=== PATIENT | male | born 1960 | race Caucasian/White ===

== ENCOUNTER 2019-01-04 00:10 | Inpatient (IN) | payer OTHER ==
[2019-01-04 00:33] LABS: ADD MAN DIFF? NO
[2019-01-04 00:34] LABS: WHITE BLOOD COUNT 11.1 10^3/ul (4.8-10.8)
[2019-01-04 00:34] LABS: BASOPHILS % 0.4 % (0.0-2.0); EOSINOPHILS % 0.2 % (0.0-7.0); HEMATOCRIT 41.3 % (42.0-52.0); HEMOGLOBIN 14.1 g/dl (14.0-18.0); LYMPHOCYTES # 1.8 10^3/ul (0.8-2.9); LYMPHOCYTES % 16.5 % (15.0-51.0); MEAN CORPUSCULAR HEMOGLOBIN 28.7 pg (29.0-33.0); MEAN CORPUSCULAR HGB CONC 34.1 g/dl (32.0-37.0); MEAN CORPUSCULAR VOLUME 83.9 fl (82.0-101.0); MEAN PLATELET VOLUME 9.8 fl (7.4-10.4); MONOCYTE # 0.6 10^3/ul (0.3-0.9); MONOCYTES % 5.3 % (0.0-11.0); NEUTROPHIL # 8.6 10^3/ul (1.6-7.5); NEUTROPHILS % 77.4 % (39.0-77.0); PLATELET COUNT 302 10^3/UL (140-415); RED BLOOD COUNT 4.92 10^6/ul (4.70-6.10); RED CELL DISTRIBUTION WIDTH 12.7 % (11.5-14.5)
[2019-01-04 00:51] LABS: ALANINE AMINOTRANSFERASE 17 IU/L (13-69); ALBUMIN 4.5 g/dl (3.3-4.9); ALBUMIN/GLOBULIN RATIO 1.15; ALKALINE PHOSPHATASE 110 IU/L (42-121); ANION GAP 13 (5-13); ASPARTATE AMINO TRANSFERASE 23 IU/L (15-46); BILIRUBIN,INDIRECT 0.5 mg/dl (0-1.1); BILIRUBIN,TOTAL 0.5 mg/dl (0.2-1.3); BLOOD UREA NITROGEN 21 mg/dl (7-20); CALCIUM 9.4 mg/dl (8.4-10.2); CARBON DIOXIDE 30 mmol/L (21-31); CHLORIDE 99 mmol/L (97-110); CREATININE 1.75 mg/dl (0.61-1.24); Estimated GFR 40 mL/min (>60); GLUCOSE 322 mg/dl (70-220); LIPASE 64 U/L (23-300); POTASSIUM 3.6 mmol/L (3.5-5.1); SODIUM 142 mmol/L (135-144); TOTAL PROTEIN 8.4 g/dl (6.1-8.1)
[2019-01-04] MEDS: SOD CHLORIDE 0.9% 1,000 ML IV ×2 (00:53→10:46)
[2019-01-04 01:02] LABS: TROPONIN-I 0.056 ng/ml (0.000-0.120)
[2019-01-04] MEDS: ASPIRIN 81 MG TAB PO (02:05)
[2019-01-04] MEDS: ENALAPRILAT 1.25 MG INJ IV (02:05)
[2019-01-04 02:09] LABS: ADD UMIC YES; UR ASCORBIC ACID NEGATIVE (NEGATIVE); UR BILIRUBIN (Dip) NEGATIVE (NEGATIVE); UR BLOOD (Dip) NEGATIVE (NEGATIVE); UR CLARITY CLEAR (CLEAR); UR COLOR YELLOW (YELLOW); UR GLUCOSE (Dip) 3+ mg/dL (NEGATIVE); UR KETONES (Dip) NEGATIVE (NEGATIVE); UR LEUKOCYTE ESTERASE (Dip) NEGATIVE Leu/ul (NEGATIVE); UR NITRITE (Dip) NEGATIVE (NEGATIVE); UR RBC 1 /HPF (0-5); UR TOTAL PROTEIN (Dip) 3+ mg/dl (NEGATIVE); UR UROBILINOGEN (Dip) NEGATIVE (NEGATIVE); UR WBC 1 /HPF (0-5)
[2019-01-04] MEDS ORDERED: ACETAMINOPHEN 650 MG SUPP PR (02:30)
[2019-01-04] MEDS ORDERED: hydrALAzine 20 MG INJ IV (02:30)
[2019-01-04] MEDS ORDERED: NACL 0.9% 3 ML SYG IV (02:30)
[2019-01-04 11:24] LABS: HEMOGLOBIN A1C 8.1 % (0-5.9)
[2019-01-04 11:24] LABS: ANION GAP 8 (5-13); BLOOD UREA NITROGEN 18 mg/dl (7-20); CALCIUM 8.7 mg/dl (8.4-10.2); CARBON DIOXIDE 25 mmol/L (21-31); CHLORIDE 108 mmol/L (97-110); CREATININE 1.42 mg/dl (0.61-1.24); Estimated GFR 51 mL/min (>60); GLUCOSE 83 mg/dl (70-220); POTASSIUM 3.5 mmol/L (3.5-5.1); SODIUM 141 mmol/L (135-144)
[2019-01-04 11:27] LABS: CHOL/HDL RATIO 9.3 RATIO; HDL CHOLESTEROL 25 mg/dl (30-78); LDL CHOLESTEROL,CALCULATED 148 mg/dl; TRIGLYCERIDES 301 mg/dl (0-149)
[2019-01-04 11:27] LABS: CHOLESTEROL 233 mg/dl (100-200)
[2019-01-04] MEDS: AMLODIPINE 5 MG TAB PO (13:14)
[2019-01-04 15:59] LABS: ERYTHROCYTE SEDIMENTATION RATE 43 mm/Hr (0-20)
[2019-01-04 18:31] LABS: ADD UMIC YES; UR ASCORBIC ACID NEGATIVE (NEGATIVE); UR BILIRUBIN (Dip) NEGATIVE (NEGATIVE); UR BLOOD (Dip) NEGATIVE (NEGATIVE); UR CLARITY CLEAR (CLEAR); UR COLOR YELLOW (YELLOW); UR GLUCOSE (Dip) 3+ mg/dL (NEGATIVE); UR KETONES (Dip) NEGATIVE (NEGATIVE); UR LEUKOCYTE ESTERASE (Dip) NEGATIVE Leu/ul (NEGATIVE); UR NITRITE (Dip) NEGATIVE (NEGATIVE); UR RBC 1 /HPF (0-5); UR SPECIFIC GRAVITY (Dip) 1.014 (1.003-1.030); UR TOTAL PROTEIN (Dip) 3+ mg/dl (NEGATIVE); UR UROBILINOGEN (Dip) NEGATIVE (NEGATIVE); UR WBC 1 /HPF (0-5)
[2019-01-04 19:03] LABS: AMPHETAMINE/METHAMPHETAMINE Negative (NEGATIVE); BARBITURATES Negative (NEGATIVE); BENZODIAZEPINES Negative (NEGATIVE); CANNABINOIDS Negative (NEGATIVE); COCAINE Negative (NEGATIVE); OPIATES Negative (NEGATIVE)
[2019-01-04 19:07] LABS: CREATININE,URINE RANDOM 97.56 mg/dl (20-370)
[2019-01-04 19:07] LABS: SODIUM,URINE RANDOM 80 mmol/L (30-90)
[2019-01-04 20:42] LABS: RAPID PLASMA REAGIN NONREACTIVE (NR)
[2019-01-04] MEDS ORDERED: GLUCOSE GEL 15 GRAM TUBE BUCCAL (21:00)
[2019-01-04] MEDS ORDERED: GLUCOSE GEL 15 GRAM TUBE PO ×2 (21:00)
[2019-01-04] MEDS ORDERED: DEXTROSE 50% 50 ML SYRINGE IV ×2 (21:00)
[2019-01-04] MEDS ORDERED: GLUCAGON 1 MG INJ IM (21:00)
[2019-01-04] MEDS: ATORVASTATIN 80 MG TAB PO (21:50)
[2019-01-04] MEDS: INSULIN ASPART [NOVOLOG] 3 ML PEN SC (22:10)
[2019-01-05] MEDS: ACCU-CHEK XX (01:50)
[2019-01-05 06:19] LABS: ADD MAN DIFF? NO
[2019-01-05 06:25] LABS: WHITE BLOOD COUNT 11.5 10^3/ul (4.8-10.8)
[2019-01-05 06:25] LABS: BASOPHIL # 0.1 10^3/ul (0.0-0.1); BASOPHILS % 0.6 % (0.0-2.0); EOSINOPHILS # 0.3 10^3/ul (0.0-0.5); EOSINOPHILS % 2.3 % (0.0-7.0); HEMATOCRIT 37.8 % (42.0-52.0); LYMPHOCYTES # 2.6 10^3/ul (0.8-2.9); LYMPHOCYTES % 22.4 % (15.0-51.0); MEAN CORPUSCULAR HEMOGLOBIN 28.6 pg (29.0-33.0); MEAN CORPUSCULAR HGB CONC 34.4 g/dl (32.0-37.0); MEAN CORPUSCULAR VOLUME 83.3 fl (82.0-101.0); MONOCYTE # 0.7 10^3/ul (0.3-0.9); MONOCYTES % 5.7 % (0.0-11.0); NEUTROPHIL # 7.9 10^3/ul (1.6-7.5); NEUTROPHILS % 68.7 % (39.0-77.0); PLATELET COUNT 291 10^3/UL (140-415); RED BLOOD COUNT 4.54 10^6/ul (4.70-6.10); RED CELL DISTRIBUTION WIDTH 12.7 % (11.5-14.5)
[2019-01-05 06:52] LABS: ALANINE AMINOTRANSFERASE 17 IU/L (13-69); ALBUMIN 3.6 g/dl (3.3-4.9); ALBUMIN/GLOBULIN RATIO 1.02; ALKALINE PHOSPHATASE 90 IU/L (42-121); ANION GAP 9 (5-13); ASPARTATE AMINO TRANSFERASE 27 IU/L (15-46); BILIRUBIN,INDIRECT 0.5 mg/dl (0-1.1); BILIRUBIN,TOTAL 0.5 mg/dl (0.2-1.3); BLOOD UREA NITROGEN 18 mg/dl (7-20); CALCIUM 8.8 mg/dl (8.4-10.2); CARBON DIOXIDE 25 mmol/L (21-31); CHLORIDE 106 mmol/L (97-110); CREATININE 1.48 mg/dl (0.61-1.24); Estimated GFR 48 mL/min (>60); GLUCOSE 178 mg/dl (70-220); MAGNESIUM 1.9 mg/dl (1.7-2.5); POTASSIUM 3.5 mmol/L (3.5-5.1); SODIUM 140 mmol/L (135-144); TOTAL PROTEIN 7.1 g/dl (6.1-8.1)
[2019-01-05] MEDS: AMLODIPINE 5 MG TAB PO (08:28)
[2019-01-05] MEDS: INSULIN ASPART [NOVOLOG] 3 ML PEN SC ×4 (08:34→21:00)
[2019-01-05] MEDS: ATORVASTATIN 80 MG TAB PO (20:48)
[2019-01-05] MEDS: HEPARIN 5,000 UNIT/1 ML VIAL SC (21:01)
[2019-01-06] MEDS: ACCU-CHEK XX (02:19)
[2019-01-06 05:54] LABS: ADD MAN DIFF? NO
[2019-01-06 06:04] LABS: WHITE BLOOD COUNT 9.3 10^3/ul (4.8-10.8)
[2019-01-06 06:04] LABS: BASOPHILS % 0.4 % (0.0-2.0); EOSINOPHILS # 0.3 10^3/ul (0.0-0.5); EOSINOPHILS % 2.9 % (0.0-7.0); HEMATOCRIT 36.1 % (42.0-52.0); HEMOGLOBIN 12.4 g/dl (14.0-18.0); LYMPHOCYTES # 2.1 10^3/ul (0.8-2.9); LYMPHOCYTES % 22.5 % (15.0-51.0); MEAN CORPUSCULAR HEMOGLOBIN 28.8 pg (29.0-33.0); MEAN CORPUSCULAR HGB CONC 34.3 g/dl (32.0-37.0); MEAN CORPUSCULAR VOLUME 83.8 fl (82.0-101.0); MEAN PLATELET VOLUME 10.3 fl (7.4-10.4); MONOCYTE # 0.6 10^3/ul (0.3-0.9); MONOCYTES % 6.8 % (0.0-11.0); NEUTROPHIL # 6.2 10^3/ul (1.6-7.5); NEUTROPHILS % 67.1 % (39.0-77.0); PLATELET COUNT 263 10^3/UL (140-415); RED BLOOD COUNT 4.31 10^6/ul (4.70-6.10); RED CELL DISTRIBUTION WIDTH 12.6 % (11.5-14.5)
[2019-01-06 06:25] LABS: ANION GAP 8 (5-13); BLOOD UREA NITROGEN 20 mg/dl (7-20); CALCIUM 8.7 mg/dl (8.4-10.2); CARBON DIOXIDE 25 mmol/L (21-31); CHLORIDE 106 mmol/L (97-110); CREATININE 1.59 mg/dl (0.61-1.24); Estimated GFR 45 mL/min (>60); GLUCOSE 274 mg/dl (70-220); MAGNESIUM 1.9 mg/dl (1.7-2.5); PHOSPHORUS 3.6 mg/dl (2.5-4.9); POTASSIUM 3.8 mmol/L (3.5-5.1); SODIUM 139 mmol/L (135-144)
[2019-01-06] MEDS: INSULIN ASPART [NOVOLOG] 3 ML PEN SC ×4 (07:53→21:53)
[2019-01-06] MEDS: INSULIN GLARGINE [LANTus] (100 UNITS/ML) SYG SC (07:53)
[2019-01-06] MEDS: AMLODIPINE 5 MG TAB PO (09:01)
[2019-01-06] MEDS: HEPARIN 5,000 UNIT/1 ML VIAL SC ×2 (09:04→21:53)
[2019-01-06 16:32] LABS: CREATININE, RANDOM URINE 100 mg/dL (20-320); MICROALBUMIN 302.3 mg/dL; MICROALBUMIN/CREATININE RATIO 3023 (<30)
[2019-01-06] MEDS: ATORVASTATIN 80 MG TAB PO (21:40)
[2019-01-07] MEDS: ACCU-CHEK XX (02:06)
[2019-01-07 05:46] LABS: ADD MAN DIFF? NO
[2019-01-07 05:51] LABS: BASOPHIL # 0.1 10^3/ul (0.0-0.1); BASOPHILS % 0.8 % (0.0-2.0); EOSINOPHILS # 0.3 10^3/ul (0.0-0.5); EOSINOPHILS % 3.2 % (0.0-7.0); HEMATOCRIT 38.2 % (42.0-52.0); LYMPHOCYTES # 2.4 10^3/ul (0.8-2.9); LYMPHOCYTES % 26.3 % (15.0-51.0); MEAN CORPUSCULAR HEMOGLOBIN 28.3 pg (29.0-33.0); MEAN CORPUSCULAR VOLUME 83.2 fl (82.0-101.0); MEAN PLATELET VOLUME 10.2 fl (7.4-10.4); MONOCYTE # 0.6 10^3/ul (0.3-0.9); MONOCYTES % 6.8 % (0.0-11.0); NEUTROPHIL # 5.7 10^3/ul (1.6-7.5); NEUTROPHILS % 62.6 % (39.0-77.0); PLATELET COUNT 273 10^3/UL (140-415); RED BLOOD COUNT 4.59 10^6/ul (4.70-6.10); RED CELL DISTRIBUTION WIDTH 12.8 % (11.5-14.5)
[2019-01-07 05:51] LABS: WHITE BLOOD COUNT 9.1 10^3/ul (4.8-10.8)
[2019-01-07 06:35] LABS: ANION GAP 6 (5-13); BLOOD UREA NITROGEN 20 mg/dl (7-20); CALCIUM 8.5 mg/dl (8.4-10.2); CARBON DIOXIDE 27 mmol/L (21-31); CHLORIDE 107 mmol/L (97-110); CREATININE 1.48 mg/dl (0.61-1.24); Estimated GFR 48 mL/min (>60); GLUCOSE 216 mg/dl (70-220); POTASSIUM 3.7 mmol/L (3.5-5.1); SODIUM 140 mmol/L (135-144)
[2019-01-07] MEDS: AMLODIPINE 5 MG TAB PO (07:54)
[2019-01-07] MEDS: HEPARIN 5,000 UNIT/1 ML VIAL SC ×2 (08:13→20:36)
[2019-01-07] MEDS: INSULIN ASPART [NOVOLOG] 3 ML PEN SC ×4 (08:13→20:36)
[2019-01-07] MEDS: INSULIN GLARGINE [LANTus] (100 UNITS/ML) SYG SC (08:13)
[2019-01-07] MEDS: ATORVASTATIN 80 MG TAB PO (20:24)
[2019-01-08] MEDS: ACCU-CHEK XX (01:59)
[2019-01-08 05:55] LABS: ADD MAN DIFF? NO
[2019-01-08 05:59] LABS: WHITE BLOOD COUNT 9.7 10^3/ul (4.8-10.8)
[2019-01-08 05:59] LABS: BASOPHIL # 0.1 10^3/ul (0.0-0.1); BASOPHILS % 0.6 % (0.0-2.0); EOSINOPHILS # 0.3 10^3/ul (0.0-0.5); EOSINOPHILS % 3.4 % (0.0-7.0); HEMATOCRIT 38.2 % (42.0-52.0); HEMOGLOBIN 12.9 g/dl (14.0-18.0); LYMPHOCYTES # 2.7 10^3/ul (0.8-2.9); LYMPHOCYTES % 27.8 % (15.0-51.0); MEAN CORPUSCULAR HEMOGLOBIN 28.4 pg (29.0-33.0); MEAN CORPUSCULAR HGB CONC 33.8 g/dl (32.0-37.0); MEAN CORPUSCULAR VOLUME 84.1 fl (82.0-101.0); MEAN PLATELET VOLUME 10.2 fl (7.4-10.4); MONOCYTE # 0.6 10^3/ul (0.3-0.9); MONOCYTES % 5.9 % (0.0-11.0); NEUTROPHILS % 62.1 % (39.0-77.0); PLATELET COUNT 284 10^3/UL (140-415); RED BLOOD COUNT 4.54 10^6/ul (4.70-6.10); RED CELL DISTRIBUTION WIDTH 12.7 % (11.5-14.5)
[2019-01-08 06:42] LABS: ANION GAP 7 (5-13); BLOOD UREA NITROGEN 20 mg/dl (7-20); CALCIUM 8.6 mg/dl (8.4-10.2); CARBON DIOXIDE 27 mmol/L (21-31); CHLORIDE 106 mmol/L (97-110); CREATININE 1.44 mg/dl (0.61-1.24); Estimated GFR 50 mL/min (>60); GLUCOSE 177 mg/dl (70-220); POTASSIUM 3.7 mmol/L (3.5-5.1); SODIUM 140 mmol/L (135-144)
[2019-01-08] MEDS: INSULIN ASPART [NOVOLOG] 3 ML PEN SC ×4 (08:10→21:00)
[2019-01-08] MEDS: INSULIN GLARGINE [LANTus] (100 UNITS/ML) SYG SC (08:13)
[2019-01-08] MEDS: HEPARIN 5,000 UNIT/1 ML VIAL SC ×2 (09:36→21:25)
[2019-01-08] MEDS: AMLODIPINE 5 MG TAB PO (09:45)
[2019-01-08] MEDS: ATORVASTATIN 80 MG TAB PO (21:18)
[2019-01-09] MEDS: ACCU-CHEK XX (02:00)
[2019-01-09] MEDS: INSULIN ASPART [NOVOLOG] 3 ML PEN SC ×4 (07:49→21:06)
[2019-01-09] MEDS: INSULIN GLARGINE [LANTus] (100 UNITS/ML) SYG SC (07:53)
[2019-01-09] MEDS: AMLODIPINE 5 MG TAB PO (08:36)
[2019-01-09] MEDS: HEPARIN 5,000 UNIT/1 ML VIAL SC ×2 (08:48→21:07)
[2019-01-09] MEDS: ATORVASTATIN 80 MG TAB PO (21:07)
[2019-01-10] MEDS: ACCU-CHEK XX (02:16)
[2019-01-10] MEDS: AMLODIPINE 5 MG TAB PO (09:21)
[2019-01-10] MEDS: INSULIN GLARGINE [LANTus] (100 UNITS/ML) SYG SC (09:42)
[2019-01-10] MEDS: INSULIN ASPART [NOVOLOG] 3 ML PEN SC ×4 (09:42→20:34)
[2019-01-10] MEDS: HEPARIN 5,000 UNIT/1 ML VIAL SC ×2 (09:42→20:23)
[2019-01-10] MEDS: ATORVASTATIN 80 MG TAB PO (20:21)
[2019-01-11] MEDS: ACCU-CHEK XX (02:18)
[2019-01-11] MEDS: ACETAMINOPHEN 325 MG TAB PO (02:22)
[2019-01-11 06:29] LABS: ANION GAP 9 (5-13); BLOOD UREA NITROGEN 24 mg/dl (7-20); CALCIUM 8.8 mg/dl (8.4-10.2); CARBON DIOXIDE 26 mmol/L (21-31); CHLORIDE 105 mmol/L (97-110); CREATININE 1.62 mg/dl (0.61-1.24); Estimated GFR 44 mL/min (>60); GLUCOSE 153 mg/dl (70-220); MAGNESIUM 2.1 mg/dl (1.7-2.5); PHOSPHORUS 3.9 mg/dl (2.5-4.9); SODIUM 140 mmol/L (135-144)
[2019-01-11] MEDS: INSULIN ASPART [NOVOLOG] 3 ML PEN SC ×4 (07:52→21:00)
[2019-01-11] MEDS: INSULIN GLARGINE [LANTus] (100 UNITS/ML) SYG SC (08:00)
[2019-01-11] MEDS: AMLODIPINE 5 MG TAB PO (08:27)
[2019-01-11] MEDS: HEPARIN 5,000 UNIT/1 ML VIAL SC ×2 (09:26→21:44)
[2019-01-11] MEDS: ASPIRIN (EC) 81 MG TAB PO (15:00)
[2019-01-11] MEDS: BISACODYL (EC) 5 MG TAB PO (17:56)
[2019-01-11] MEDS: ATORVASTATIN 80 MG TAB PO (21:41)
[2019-01-11] MEDS: POLYETHYLENE GLYCOL 17 GM PACKET PO (21:42)
[2019-01-12] MEDS: ACCU-CHEK XX (02:00)
[2019-01-12 05:29] LABS: ADD MAN DIFF? NO
[2019-01-12 05:34] LABS: BASOPHIL # 0.1 10^3/ul (0.0-0.1); BASOPHILS % 0.5 % (0.0-2.0); EOSINOPHILS # 0.2 10^3/ul (0.0-0.5); EOSINOPHILS % 2.3 % (0.0-7.0); HEMATOCRIT 38.3 % (42.0-52.0); HEMOGLOBIN 12.9 g/dl (14.0-18.0); LYMPHOCYTES # 2.7 10^3/ul (0.8-2.9); LYMPHOCYTES % 28.4 % (15.0-51.0); MEAN CORPUSCULAR HEMOGLOBIN 28.2 pg (29.0-33.0); MEAN CORPUSCULAR HGB CONC 33.7 g/dl (32.0-37.0); MEAN CORPUSCULAR VOLUME 83.6 fl (82.0-101.0); MEAN PLATELET VOLUME 10.3 fl (7.4-10.4); MONOCYTE # 0.7 10^3/ul (0.3-0.9); MONOCYTES % 6.9 % (0.0-11.0); NEUTROPHIL # 5.9 10^3/ul (1.6-7.5); NEUTROPHILS % 61.6 % (39.0-77.0); PLATELET COUNT 323 10^3/UL (140-415); RED BLOOD COUNT 4.58 10^6/ul (4.70-6.10)
[2019-01-12 05:34] LABS: WHITE BLOOD COUNT 9.5 10^3/ul (4.8-10.8)
[2019-01-12 06:03] LABS: PHOSPHORUS 3.9 mg/dl (2.5-4.9)
[2019-01-12 06:03] LABS: MAGNESIUM 2.1 mg/dl (1.7-2.5)
[2019-01-12 06:04] LABS: ANION GAP 6 (5-13); BLOOD UREA NITROGEN 25 mg/dl (7-20); CALCIUM 8.8 mg/dl (8.4-10.2); CARBON DIOXIDE 27 mmol/L (21-31); CHLORIDE 106 mmol/L (97-110); CREATININE 1.65 mg/dl (0.61-1.24); Estimated GFR 43 mL/min (>60); GLUCOSE 130 mg/dl (70-220); POTASSIUM 4.3 mmol/L (3.5-5.1); SODIUM 139 mmol/L (135-144)
[2019-01-12] MEDS: INSULIN ASPART [NOVOLOG] 3 ML PEN SC ×4 (09:00→20:48)
[2019-01-12] MEDS ORDERED: ASPIRIN (EC) 81 MG TAB PO (09:00)
[2019-01-12] MEDS: ASPIRIN 81 MG TAB PO (09:08)
[2019-01-12] MEDS: AMLODIPINE 5 MG TAB PO (09:09)
[2019-01-12] MEDS: POLYETHYLENE GLYCOL 17 GM PACKET PO ×2 (09:09→20:43)
[2019-01-12] MEDS: INSULIN GLARGINE [LANTus] (100 UNITS/ML) SYG SC (09:11)
[2019-01-12] MEDS: HEPARIN 5,000 UNIT/1 ML VIAL SC ×2 (09:11→20:49)
[2019-01-12] MEDS: ATORVASTATIN 80 MG TAB PO (20:43)
[2019-01-13] MEDS: ACCU-CHEK XX (02:00)
[2019-01-13 05:00] LABS: ADD MAN DIFF? NO
[2019-01-13 05:03] LABS: WHITE BLOOD COUNT 10.9 10^3/ul (4.8-10.8)
[2019-01-13 05:03] LABS: BASOPHIL # 0.1 10^3/ul (0.0-0.1); BASOPHILS % 0.5 % (0.0-2.0); EOSINOPHILS # 0.2 10^3/ul (0.0-0.5); EOSINOPHILS % 1.8 % (0.0-7.0); HEMATOCRIT 38.3 % (42.0-52.0); LYMPHOCYTES # 2.5 10^3/ul (0.8-2.9); LYMPHOCYTES % 22.9 % (15.0-51.0); MEAN CORPUSCULAR HEMOGLOBIN 28.7 pg (29.0-33.0); MEAN CORPUSCULAR HGB CONC 33.9 g/dl (32.0-37.0); MEAN CORPUSCULAR VOLUME 84.5 fl (82.0-101.0); MEAN PLATELET VOLUME 10.1 fl (7.4-10.4); MONOCYTE # 0.7 10^3/ul (0.3-0.9); MONOCYTES % 6.4 % (0.0-11.0); NEUTROPHIL # 7.4 10^3/ul (1.6-7.5); NEUTROPHILS % 68.1 % (39.0-77.0); PLATELET COUNT 317 10^3/UL (140-415); RED BLOOD COUNT 4.53 10^6/ul (4.70-6.10)
[2019-01-13 05:29] LABS: ANION GAP 6 (5-13); BLOOD UREA NITROGEN 27 mg/dl (7-20); CALCIUM 9.1 mg/dl (8.4-10.2); CARBON DIOXIDE 29 mmol/L (21-31); CHLORIDE 106 mmol/L (97-110); CREATININE 1.65 mg/dl (0.61-1.24); Estimated GFR 43 mL/min (>60); GLUCOSE 132 mg/dl (70-220); POTASSIUM 4.3 mmol/L (3.5-5.1); SODIUM 141 mmol/L (135-144)
[2019-01-13 05:40] LABS: MAGNESIUM 2.1 mg/dl (1.7-2.5)
[2019-01-13 05:40] LABS: PHOSPHORUS 4.1 mg/dl (2.5-4.9)
[2019-01-13] MEDS: INSULIN ASPART [NOVOLOG] 3 ML PEN SC ×4 (07:50→20:20)
[2019-01-13] MEDS: ASPIRIN 81 MG TAB PO (08:38)
[2019-01-13] MEDS: AMLODIPINE 5 MG TAB PO (08:41)
[2019-01-13] MEDS: POLYETHYLENE GLYCOL 17 GM PACKET PO ×2 (08:42→20:14)
[2019-01-13] MEDS: HEPARIN 5,000 UNIT/1 ML VIAL SC ×2 (08:43→20:21)
[2019-01-13] MEDS: INSULIN GLARGINE [LANTus] (100 UNITS/ML) SYG SC (08:43)
[2019-01-13] MEDS: ACETAMINOPHEN 325 MG TAB PO (19:22)
[2019-01-13] MEDS: ATORVASTATIN 80 MG TAB PO (20:13)
[2019-01-14] MEDS: ACCU-CHEK XX (02:00)
[2019-01-14] MEDS: ACETAMINOPHEN 325 MG TAB PO (02:52)
[2019-01-14 05:05] LABS: ADD MAN DIFF? NO
[2019-01-14 05:08] LABS: WHITE BLOOD COUNT 9.4 10^3/ul (4.8-10.8)
[2019-01-14 05:08] LABS: BASOPHIL # 0.1 10^3/ul (0.0-0.1); BASOPHILS % 0.5 % (0.0-2.0); EOSINOPHILS # 0.2 10^3/ul (0.0-0.5); EOSINOPHILS % 2.5 % (0.0-7.0); HEMATOCRIT 38.2 % (42.0-52.0); HEMOGLOBIN 12.9 g/dl (14.0-18.0); LYMPHOCYTES % 32.2 % (15.0-51.0); MEAN CORPUSCULAR HEMOGLOBIN 28.7 pg (29.0-33.0); MEAN CORPUSCULAR HGB CONC 33.8 g/dl (32.0-37.0); MEAN CORPUSCULAR VOLUME 84.9 fl (82.0-101.0); MEAN PLATELET VOLUME 10.3 fl (7.4-10.4); MONOCYTE # 0.7 10^3/ul (0.3-0.9); MONOCYTES % 7.1 % (0.0-11.0); NEUTROPHIL # 5.4 10^3/ul (1.6-7.5); NEUTROPHILS % 57.5 % (39.0-77.0); PLATELET COUNT 302 10^3/UL (140-415); RED CELL DISTRIBUTION WIDTH 13.1 % (11.5-14.5)
[2019-01-14 05:34] LABS: MAGNESIUM 2.2 mg/dl (1.7-2.5)
[2019-01-14 05:34] LABS: PHOSPHORUS 4.6 mg/dl (2.5-4.9)
[2019-01-14 05:38] LABS: ANION GAP 7 (5-13); BLOOD UREA NITROGEN 26 mg/dl (7-20); CALCIUM 8.9 mg/dl (8.4-10.2); CARBON DIOXIDE 28 mmol/L (21-31); CHLORIDE 104 mmol/L (97-110); CREATININE 1.68 mg/dl (0.61-1.24); Estimated GFR 42 mL/min (>60); GLUCOSE 171 mg/dl (70-220); POTASSIUM 4.4 mmol/L (3.5-5.1); SODIUM 139 mmol/L (135-144)
[2019-01-14] MEDS: FUROSEMIDE 20 MG TAB PO (08:48)
[2019-01-14] MEDS: ASPIRIN 81 MG TAB PO (08:48)
[2019-01-14] MEDS: SPIRONOLACTONE 25 MG TAB PO (08:48)
[2019-01-14] MEDS: AMLODIPINE 5 MG TAB PO (08:49)
[2019-01-14] MEDS: HEPARIN 5,000 UNIT/1 ML VIAL SC (08:51)
[2019-01-14] MEDS: INSULIN ASPART [NOVOLOG] 3 ML PEN SC ×3 (08:52→17:45)
[2019-01-14] MEDS: INSULIN GLARGINE [LANTus] (100 UNITS/ML) SYG SC (08:53)
[2019-01-14] MEDS: POLYETHYLENE GLYCOL 17 GM PACKET PO (08:54)
== END 2019-01-14 18:30 | DRG 65 ==
LOC: MS1 01-11 18:04 → E/R 00:10 → 6WM 02:03
DX: I63.9 Cerebral infarction, unspecified (principal); G81.91 Hemiplegia, unspecified affecting right dominant side; N17.9 Acute kidney failure, unspecified; I42.9 Cardiomyopathy, unspecified; I12.0 Hypertensive chronic kidney disease with stage 5 chronic kidney disease or end stage renal disease; E11.22 Type 2 diabetes mellitus with diabetic chronic kidney disease; R13.19 Other dysphagia; I25.10 Atherosclerotic heart disease of native coronary artery without angina pectoris; N18.9 Chronic kidney disease, unspecified; E78.5 Hyperlipidemia, unspecified; N40.0 Benign prostatic hyperplasia without lower urinary tract symptoms; D63.8 Anemia in other chronic diseases classified elsewhere; R29.810 Facial weakness; I65.21 Occlusion and stenosis of right carotid artery; Z79.4 Long term (current) use of insulin; Z79.82 Long term (current) use of aspirin; Z95.0 Presence of cardiac pacemaker; Z87.891 Personal history of nicotine dependence
CPT/HCPCS: 36415; 70450; 71045; 76775; 80048; 80053; 80061; 80307; 81001; 81003; 82043; 82962; 83036; 83690; 83735; 84100; 84155; 84300; 84443; 84484; 85025; 85651; 86592; 92507; 92523; 92526; 92610; 93005; 93306; 93880; 95819; 97110; 97163; 97167; 97530; 97535; 99285-25

== ENCOUNTER 2019-02-18 11:10 | Inpatient (IN) | payer OTHER ==
[2019-02-18] MEDS: SODIUM CHLORIDE 0.9% 1L BAG IV* (12:19)
[2019-02-18] MEDS: CEFEPIME 2GM/50 ML (PMX) 50 ML IVPB (12:24)
[2019-02-18 12:31] LABS: MODE NASAL CANNULA; Sample Type Blood venous; Site VENOUS LINE; Venous COHb 0.3 %; Venous Fraction OxyHgb 25.1 %; Venous Oxygen Sat 25.4 mmHG (55.0-75.0); Venous Total Hemglobin 14.8 g/dl
[2019-02-18 12:36] LABS: HEMOGLOBIN 13.8 g/dl (14.0-18.0); MEAN CORPUSCULAR HEMOGLOBIN 29.1 pg (29.0-33.0); MEAN CORPUSCULAR HGB CONC 33.7 g/dl (32.0-37.0); MEAN CORPUSCULAR VOLUME 86.3 fl (82.0-101.0); MEAN PLATELET VOLUME 10.1 fl (7.4-10.4); PLATELET COUNT 212 10^3/UL (140-415); POSITIVE DIFF @See below; RED BLOOD COUNT 4.75 10^6/ul (4.70-6.10); RED CELL DISTRIBUTION WIDTH 13.9 % (11.5-14.5)
[2019-02-18 12:36] LABS: WHITE BLOOD COUNT 20.8 10^3/ul (4.8-10.8)
[2019-02-18 12:48] LABS: ADD MAN DIFF? YES
[2019-02-18 12:53] LABS: ALANINE AMINOTRANSFERASE 55 IU/L (13-69); ALBUMIN 3.7 g/dl (3.3-4.9); ALBUMIN/GLOBULIN RATIO 0.84; ALKALINE PHOSPHATASE 85 IU/L (42-121); ANION GAP 14 (5-13); ASPARTATE AMINO TRANSFERASE 65 IU/L (15-46); BILIRUBIN,INDIRECT 0.3 mg/dl (0-1.1); BILIRUBIN,TOTAL 0.3 mg/dl (0.2-1.3); BLOOD UREA NITROGEN 69 mg/dl (7-20); CALCIUM 9.4 mg/dl (8.4-10.2); CARBON DIOXIDE 21 mmol/L (21-31); CHLORIDE 100 mmol/L (97-110); CREATININE 3.44 mg/dl (0.61-1.24); Estimated GFR 18 mL/min (>60); MAGNESIUM 2.2 mg/dl (1.7-2.5); PHOSPHORUS 5.5 mg/dl (2.5-4.9); SODIUM 135 mmol/L (135-144); TOTAL PROTEIN 8.1 g/dl (6.1-8.1)
[2019-02-18 12:54] LABS: INR 1.14; PROTIME 14.7 Sec (11.9-14.9); PT RATIO 1.1
[2019-02-18 12:55] LABS: PARTIAL THROMBOPLASTIN TIME 32.2 Sec (23.0-35.0)
[2019-02-18 13:03] LABS: TROPONIN-I 0.112 ng/ml (0.000-0.120)
[2019-02-18 13:07] LABS: GLUCOSE 456 mg/dl (70-220); POTASSIUM 5.2 mmol/L (3.5-5.1)
[2019-02-18] MEDS: DILTIAZEM 25 MG INJ IV ×2 (13:23→16:01)
[2019-02-18] MEDS: VANCOMYCIN 1 GM (PMX) 250 ML IVPB (13:26)
[2019-02-18] MEDS: DILTIAZEM-D5W 125MG/125ML DRIP 125 ML IV ×2 (14:09→21:50)
[2019-02-18 14:23] LABS: ANISOCYTOSIS 1+ (0-0); BAND NEUTROPHILS #M 9.1 10^3/ul (0.0-0.6); BAND NEUTROPHILS % (M) 44 % (0-4); BURR CELLS 1+ (0-0); LYMPHOCYTES #M 0.8 10^3/ul (0.8-2.9); LYMPHOCYTES % (M) 4 % (15-51); MONOCYTE #M 0.4 10^3/ul (0.3-0.9); MONOCYTES % (M) 2 % (0-11); PLATELET ESTIMATE NORMAL; POIKILOCYTOSIS 2+ (0-0); REACTIVE LYMPHOCYTES #M 0.2 10^3/ul (0.0-0.0); REACTIVE LYMPHOCYTES% (M) 1 % (0-0); SEG NEUT #M 12.1 10^3/ul (1.6-7.5); SEGMENTED NEUTROPHILS (M) % 49 % (39-77); SMUDGE%M 5 % (0-0)
[2019-02-18] MEDS: ACCU-CHEK XX ×10 (14:30→23:14)
[2019-02-18] MEDS ORDERED: MAGNESIUM HYDROXIDE 30ML CUP PO (15:00)
[2019-02-18] MEDS ORDERED: NACL 0.9% 3 ML SYG IV (15:00)
[2019-02-18] MEDS ORDERED: DEXTROSE 50% 50 ML SYRINGE IV ×4 (15:00→15:30)
[2019-02-18] MEDS ORDERED: NITROGLYCERIN (SL) 0.4 MG TAB SL (15:00)
[2019-02-18] MEDS ORDERED: ACETAMINOPHEN 325 MG TAB PO (15:00)
[2019-02-18] MEDS ORDERED: ONDANSETRON 4 MG INJ IV (15:00)
[2019-02-18] MEDS ORDERED: hydrALAzine 20 MG INJ IV (15:00)
[2019-02-18] MEDS ORDERED: VANCOMYCIN IV PER PHARMACY XX (15:00)
[2019-02-18] MEDS ORDERED: morphine 2 MG INJ IV (15:00)
[2019-02-18] MEDS ORDERED: LORAZEPAM 2 MG INJ IV (15:00)
[2019-02-18] MEDS ORDERED: DOCUSATE SODIUM 100 MG CAP PO (15:00)
[2019-02-18] MEDS ORDERED: ALBUTEROL/IPRATROPIUM (NEB) 3 ML AMP HHN (15:00)
[2019-02-18 15:24] LABS: HEMOGLOBIN A1C 9.7 % (0-5.9)
[2019-02-18] MEDS ORDERED: GLUCAGON 1 MG INJ IM (15:30)
[2019-02-18] MEDS ORDERED: GLUCOSE GEL 15 GRAM TUBE PO ×2 (15:30)
[2019-02-18] MEDS ORDERED: GLUCOSE GEL 15 GRAM TUBE BUCCAL (15:30)
[2019-02-18 15:39] LABS: FREE T4 (FREE THYROXINE) 1.21 ng/dl (0.78-2.44)
[2019-02-18] MEDS: INSULIN ASPART [NOVOLOG] 3 ML PEN SC (16:10)
[2019-02-18] MEDS: SOD CHLORIDE 0.9% 1,000 ML IV ×2 (16:11→23:17)
[2019-02-18 16:29] LABS: LACTIC ACID 1.6 mmol/L (0.5-2.0)
[2019-02-18 16:35] LABS: OCCULT BLOOD STOOL NEGATIVE (NEGATIVE)
[2019-02-18 16:37] LABS: CREATINE KINASE 169 IU/L (23-200)
[2019-02-18 16:39] LABS: ADD UMIC YES; UR ASCORBIC ACID NEGATIVE (NEGATIVE); UR BACTERIA FEW /HPF (NONE SEEN); UR BILIRUBIN (Dip) NEGATIVE (NEGATIVE); UR BLOOD (Dip) 1+ mg/dL (NEGATIVE); UR CLARITY CLOUDY (CLEAR); UR COLOR YELLOW (YELLOW); UR GLUCOSE (Dip) 2+ mg/dL (NEGATIVE); UR GRANULAR CAST FEW /HPF (NONE SEEN); UR KETONES (Dip) NEGATIVE (NEGATIVE); UR LEUKOCYTE ESTERASE (Dip) NEGATIVE Leu/ul (NEGATIVE); UR NITRITE (Dip) NEGATIVE (NEGATIVE); UR RBC 14 /HPF (0-5); UR SPECIFIC GRAVITY (Dip) 1.016 (1.003-1.030); UR TOTAL PROTEIN (Dip) 2+ mg/dl (NEGATIVE); UR UROBILINOGEN (Dip) NEGATIVE (NEGATIVE); UR WBC 4 /HPF (0-5)
[2019-02-18 16:51] LABS: CK INDEX 0.2; CK-MB 0.37 ng/ml (0.0-2.4); TROPONIN-I 0.051 ng/ml (0.000-0.120)
[2019-02-18] MEDS: INSULIN HUMAN REGULAR 100 UNIT in SOD CHLORIDE 0.9% 99 ML IV (17:15)
[2019-02-18 18:15] LABS: SODIUM,URINE RANDOM 16 mmol/L (30-90)
[2019-02-18 18:19] LABS: CREATININE,URINE RANDOM 94.04 mg/dl (20-370)
[2019-02-18 18:25] LABS: PROTEIN/CREAT RATIO 2.54 RATIO
[2019-02-18] MEDS ORDERED: METOPROLOL 5 MG INJ IV (19:30)
[2019-02-18 19:58] LABS: B-TYPE NATRIURETIC PEPTIDE 8950 PG/ML (0-125)
[2019-02-18 20:19] LABS: THYROID STIMULATING HORMONE 0.272 MIU/L (0.465-4.680)
[2019-02-18] MEDS ORDERED: HEPARIN 5,000 UNIT/1 ML VIAL SC (21:00)
[2019-02-18] MEDS: POLYETHYLENE GLYCOL 17 GM PACKET PO (21:00)
[2019-02-18] MEDS: DIGOXIN 500 MCG INJ IV (21:04)
[2019-02-18] MEDS: FAMOTIDINE 20 MG INJ IV (21:10)
[2019-02-18] MEDS: ENOXAPARIN 100 MG/ML SYG SC (21:10)
[2019-02-18 22:39] LABS: CREATINE KINASE 223 IU/L (23-200)
[2019-02-18 22:41] LABS: LACTIC ACID 2.3 mmol/L (0.5-2.0)
[2019-02-18 22:50] LABS: CK INDEX 0.3; CK-MB 0.57 ng/ml (0.0-2.4)
[2019-02-18 22:59] LABS: TROPONIN-I 0.163 ng/ml (0.000-0.120)
[2019-02-19] MEDS: ACCU-CHEK XX ×15 (00:06→14:00)
[2019-02-19] MEDS: DIGOXIN 500 MCG INJ IV (01:14)
[2019-02-19] MEDS ORDERED: PENDING SANTYL ORDER FOR WOUND CARE XX (03:30)
[2019-02-19] MEDS ORDERED: COLLAGENASE 5 GM (UD JAR) TOP (04:30)
[2019-02-19 05:38] LABS: WHITE BLOOD COUNT 13.6 10^3/ul (4.8-10.8)
[2019-02-19 05:38] LABS: HEMATOCRIT 31.4 % (42.0-52.0); HEMOGLOBIN 10.5 g/dl (14.0-18.0); MEAN CORPUSCULAR HGB CONC 33.4 g/dl (32.0-37.0); MEAN CORPUSCULAR VOLUME 86.7 fl (82.0-101.0); MEAN PLATELET VOLUME 10.7 fl (7.4-10.4); PLATELET COUNT 154 10^3/UL (140-415); POSITIVE DIFF @See below; RED BLOOD COUNT 3.62 10^6/ul (4.70-6.10); RED CELL DISTRIBUTION WIDTH 14.4 % (11.5-14.5)
[2019-02-19 05:51] LABS: ADD MAN DIFF? YES
[2019-02-19 05:59] LABS: ANION GAP 7 (5-13); BLOOD UREA NITROGEN 63 mg/dl (7-20); CARBON DIOXIDE 20 mmol/L (21-31); CHLORIDE 114 mmol/L (97-110); CREATININE 2.53 mg/dl (0.61-1.24); Estimated GFR 26 mL/min (>60); GLUCOSE 116 mg/dl (70-220); MAGNESIUM 2.1 mg/dl (1.7-2.5); PHOSPHORUS 3.6 mg/dl (2.5-4.9); POTASSIUM 4.4 mmol/L (3.5-5.1); SODIUM 141 mmol/L (135-144)
[2019-02-19 06:16] LABS: CHOLESTEROL 153 mg/dl (100-200)
[2019-02-19 06:16] LABS: HDL CHOLESTEROL 17 mg/dl (30-78); LDL CHOLESTEROL,CALCULATED 50 mg/dl; TRIGLYCERIDES 428 mg/dl (0-149)
[2019-02-19 06:52] LABS: BAND NEUTROPHILS #M 5.3 10^3/ul (0.0-0.6); BAND NEUTROPHILS % (M) 39 % (0-4); BURR CELLS 1+ (0-0); EOSINOPHILS % (M) 1 % (0-7); LYMPHOCYTES #M 0.6 10^3/ul (0.8-2.9); LYMPHOCYTES % (M) 5 % (15-51); MONOCYTE #M 0.6 10^3/ul (0.3-0.9); MONOCYTES % (M) 5 % (0-11); PLATELET ESTIMATE NORMAL; POIKILOCYTOSIS 2+ (0-0); REACTIVE LYMPHOCYTES #M 0.2 10^3/ul (0.0-0.0); REACTIVE LYMPHOCYTES% (M) 2 % (0-0); SEG NEUT #M 7.2 10^3/ul (1.6-7.5); SEGMENTED NEUTROPHILS (M) % 48 % (39-77); SMUDGE%M 9 % (0-0); SPHEROCYTES 1+ (0-0)
[2019-02-19 07:05] LABS: HEMOGLOBIN A1C 10.3 % (0-5.9)
[2019-02-19] MEDS: SOD CHLORIDE 0.9% 1,000 ML IV ×2 (07:12→20:52)
[2019-02-19] MEDS: POLYETHYLENE GLYCOL 17 GM PACKET PO ×2 (09:00→21:00)
[2019-02-19] MEDS: TAMSULOSIN (SR) 0.4 MG CAP PO (09:00)
[2019-02-19] MEDS: COLLAGENASE 5 GM (UD JAR) TOP (10:06)
[2019-02-19] MEDS: NA BICARBONATE 8.4% 50 ML SYG IV ×2 (10:06→12:51)
[2019-02-19 10:54] LABS: LACTIC ACID 0.8 mmol/L (0.5-2.0)
[2019-02-19] MEDS: INSULIN ASPART [NOVOLOG] 3 ML PEN SC ×3 (12:12→20:54)
[2019-02-19] MEDS: CEFEPIME 2GM/50 ML (PMX) 50 ML IVPB (12:51)
[2019-02-19] MEDS: INSULIN GLARGINE [LANTus] (100 UNITS/ML) SYG SC (12:52)
[2019-02-19] MEDS ORDERED: GLUCOSE GEL 15 GRAM TUBE PO ×2 (13:00)
[2019-02-19] MEDS ORDERED: GLUCAGON 1 MG INJ IM (13:00)
[2019-02-19] MEDS ORDERED: GLUCOSE GEL 15 GRAM TUBE BUCCAL (13:00)
[2019-02-19] MEDS ORDERED: DEXTROSE 50% 50 ML SYRINGE IV ×2 (13:00)
[2019-02-19 14:46] LABS: C-REACTIVE PROTEIN 45.9 mg/dl (0.0-0.9)
[2019-02-19] MEDS: DAKINS 0.0125%(1/40) 473 ML SOLUTION TP (15:17)
[2019-02-19 18:22] LABS: PROCALCITONIN 24.89 ng/mL (0.00-0.10)
[2019-02-19 20:12] LABS: ERYTHROCYTE SEDIMENTATION RATE 130 mm/Hr (0-20)
[2019-02-19] MEDS: FAMOTIDINE 20 MG INJ IV (21:01)
[2019-02-19] MEDS: ENOXAPARIN 100 MG/ML SYG SC (21:10)
[2019-02-20] MEDS: INSULIN ASPART [NOVOLOG] 3 ML PEN SC ×6 (00:03→20:04)
[2019-02-20] MEDS: VANCOMYCIN 1 GM 250 ML IVPB (01:30)
[2019-02-20] MEDS ORDERED: ACCU-CHEK XX (02:00)
[2019-02-20 06:27] LABS: ADD MAN DIFF? NO
[2019-02-20 06:29] LABS: WHITE BLOOD COUNT 13.7 10^3/ul (4.8-10.8)
[2019-02-20 06:29] LABS: BASOPHILS % 0.3 % (0.0-2.0); EOSINOPHILS % 0.1 % (0.0-7.0); HEMATOCRIT 32.8 % (42.0-52.0); HEMOGLOBIN 10.8 g/dl (14.0-18.0); LYMPHOCYTES # 1.3 10^3/ul (0.8-2.9); LYMPHOCYTES % 9.2 % (15.0-51.0); MEAN CORPUSCULAR HEMOGLOBIN 28.5 pg (29.0-33.0); MEAN CORPUSCULAR HGB CONC 32.9 g/dl (32.0-37.0); MEAN CORPUSCULAR VOLUME 86.5 fl (82.0-101.0); MONOCYTE # 0.8 10^3/ul (0.3-0.9); MONOCYTES % 5.5 % (0.0-11.0); NEUTROPHIL # 11.5 10^3/ul (1.6-7.5); PLATELET COUNT 175 10^3/UL (140-415); POSITIVE DIFF @See below; RED BLOOD COUNT 3.79 10^6/ul (4.70-6.10)
[2019-02-20 06:52] LABS: ANION GAP 8 (5-13); BLOOD UREA NITROGEN 52 mg/dl (7-20); CALCIUM 8.7 mg/dl (8.4-10.2); CARBON DIOXIDE 22 mmol/L (21-31); CHLORIDE 117 mmol/L (97-110); CREATININE 2.17 mg/dl (0.61-1.24); Estimated GFR 31 mL/min (>60); GLUCOSE 149 mg/dl (70-220); POTASSIUM 4.3 mmol/L (3.5-5.1); SODIUM 147 mmol/L (135-144)
[2019-02-20 07:11] LABS: PHOSPHORUS 3.5 mg/dl (2.5-4.9)
[2019-02-20 07:11] LABS: MAGNESIUM 2.3 mg/dl (1.7-2.5)
[2019-02-20] MEDS: POLYETHYLENE GLYCOL 17 GM PACKET PO ×2 (09:00→20:01)
[2019-02-20 09:01] LABS: BAND NEUTROPHILS #M 5.2 10^3/ul (0.0-0.6); BAND NEUTROPHILS % (M) 38 % (0-4); BURR CELLS 1+ (0-0); LYMPHOCYTES #M 0.8 10^3/ul (0.8-2.9); LYMPHOCYTES % (M) 6 % (15-51); MONOCYTE #M 0.6 10^3/ul (0.3-0.9); MONOCYTES % (M) 5 % (0-11); PLATELET ESTIMATE NORMAL; POIKILOCYTOSIS 2+ (0-0); POLYCHROMASIA 1+ (0-0); REACTIVE LYMPHOCYTES #M 0.2 10^3/ul (0.0-0.0); REACTIVE LYMPHOCYTES% (M) 2 % (0-0); SEG NEUT #M 7.4 10^3/ul (1.6-7.5); SEGMENTED NEUTROPHILS (M) % 49 % (39-77); SMUDGE%M 2 % (0-0); TARGET CELLS 1+ (0-0)
[2019-02-20] MEDS: TAMSULOSIN (SR) 0.4 MG CAP PO (09:11)
[2019-02-20] MEDS: DAKINS 0.0125%(1/40) 473 ML SOLUTION TP (09:12)
[2019-02-20] MEDS: SOD CHLORIDE 0.45% 1,000 ML IV ×2 (10:51→23:20)
[2019-02-20] MEDS: CEFEPIME 2GM/50 ML (PMX) 50 ML IVPB (12:37)
[2019-02-20] MEDS ORDERED: VANCOMYCIN 1 GM 250 ML IVPB (13:00)
[2019-02-20] MEDS: FAMOTIDINE 20 MG INJ IV (19:59)
[2019-02-20] MEDS: INSULIN GLARGINE [LANTus] (100 UNITS/ML) SYG SC (20:04)
[2019-02-20] MEDS: ENOXAPARIN 80 MG/0.8 ML SYG SC (20:11)
[2019-02-21] MEDS: INSULIN ASPART [NOVOLOG] 3 ML PEN SC ×6 (00:21→21:04)
[2019-02-21 06:13] LABS: ADD MAN DIFF? NO
[2019-02-21 06:23] LABS: BASOPHILS % 0.2 % (0.0-2.0); EOSINOPHILS # 0.1 10^3/ul (0.0-0.5); EOSINOPHILS % 0.7 % (0.0-7.0); HEMATOCRIT 32.9 % (42.0-52.0); HEMOGLOBIN 10.7 g/dl (14.0-18.0); LYMPHOCYTES # 1.7 10^3/ul (0.8-2.9); LYMPHOCYTES % 12.8 % (15.0-51.0); MEAN CORPUSCULAR HEMOGLOBIN 28.6 pg (29.0-33.0); MEAN CORPUSCULAR HGB CONC 32.5 g/dl (32.0-37.0); MONOCYTES % 7.6 % (0.0-11.0); NEUTROPHIL # 10.3 10^3/ul (1.6-7.5); NEUTROPHILS % 77.8 % (39.0-77.0); PLATELET COUNT 183 10^3/UL (140-415); RED BLOOD COUNT 3.74 10^6/ul (4.70-6.10); RED CELL DISTRIBUTION WIDTH 15.5 % (11.5-14.5)
[2019-02-21 06:23] LABS: WHITE BLOOD COUNT 13.2 10^3/ul (4.8-10.8)
[2019-02-21 07:51] LABS: ALANINE AMINOTRANSFERASE 59 IU/L (13-69); ALBUMIN 2.9 g/dl (3.3-4.9); ALBUMIN/GLOBULIN RATIO 0.78; ALKALINE PHOSPHATASE 93 IU/L (42-121); ANION GAP 8 (5-13); ASPARTATE AMINO TRANSFERASE 55 IU/L (15-46); BILIRUBIN,INDIRECT 0.3 mg/dl (0-1.1); BILIRUBIN,TOTAL 0.3 mg/dl (0.2-1.3); BLOOD UREA NITROGEN 54 mg/dl (7-20); CALCIUM 8.8 mg/dl (8.4-10.2); CARBON DIOXIDE 22 mmol/L (21-31); CHLORIDE 119 mmol/L (97-110); CREATININE 2.12 mg/dl (0.61-1.24); Estimated GFR 32 mL/min (>60); GLUCOSE 107 mg/dl (70-220); POTASSIUM 4.2 mmol/L (3.5-5.1); SODIUM 149 mmol/L (135-144); TOTAL PROTEIN 6.6 g/dl (6.1-8.1)
[2019-02-21] MEDS: DEXTROSE 5% 1,000 ML IV (09:33)
[2019-02-21] MEDS: TAMSULOSIN (SR) 0.4 MG CAP PO (09:33)
[2019-02-21] MEDS: POLYETHYLENE GLYCOL 17 GM PACKET PO ×2 (09:34→21:00)
[2019-02-21] MEDS: CEFEPIME 2GM/50 ML (PMX) 50 ML IVPB (14:23)
[2019-02-21] MEDS: DAKINS 0.0125%(1/40) 473 ML SOLUTION TP (14:24)
[2019-02-21 15:39] LABS: VANCOMYCIN,TROUGH 7.7 ug/ml (10.0-20.0)
[2019-02-21] MEDS: VANCOMYCIN 1 GM 250 ML IVPB (16:29)
[2019-02-21 20:07] LABS: ALANINE AMINOTRANSFERASE 65 IU/L (13-69); ALBUMIN 2.8 g/dl (3.3-4.9); ALBUMIN/GLOBULIN RATIO 0.75; ALKALINE PHOSPHATASE 90 IU/L (42-121); ANION GAP 7 (5-13); ASPARTATE AMINO TRANSFERASE 56 IU/L (15-46); BILIRUBIN,INDIRECT 0.3 mg/dl (0-1.1); BILIRUBIN,TOTAL 0.3 mg/dl (0.2-1.3); BLOOD UREA NITROGEN 53 mg/dl (7-20); CALCIUM 8.4 mg/dl (8.4-10.2); CARBON DIOXIDE 23 mmol/L (21-31); CHLORIDE 118 mmol/L (97-110); CREATININE 2.13 mg/dl (0.61-1.24); Estimated GFR 32 mL/min (>60); GLUCOSE 158 mg/dl (70-220); POTASSIUM 4.1 mmol/L (3.5-5.1); SODIUM 148 mmol/L (135-144); TOTAL PROTEIN 6.5 g/dl (6.1-8.1)
[2019-02-21] MEDS: INSULIN GLARGINE [LANTus] (100 UNITS/ML) SYG SC (21:04)
[2019-02-21] MEDS: ENOXAPARIN 80 MG/0.8 ML SYG SC (21:04)
[2019-02-21] MEDS: FAMOTIDINE 20 MG TAB PO (22:51)
[2019-02-22] MEDS: INSULIN ASPART [NOVOLOG] 3 ML PEN SC ×6 (01:00→22:09)
[2019-02-22] MEDS: DEXTROSE 5% 1,000 ML IV ×3 (05:59→22:00)
[2019-02-22 06:37] LABS: ADD MAN DIFF? NO
[2019-02-22 06:40] LABS: BASOPHIL # 0.1 10^3/ul (0.0-0.1); BASOPHILS % 0.3 % (0.0-2.0); EOSINOPHILS # 0.2 10^3/ul (0.0-0.5); EOSINOPHILS % 1.1 % (0.0-7.0); HEMATOCRIT 33.2 % (42.0-52.0); HEMOGLOBIN 10.7 g/dl (14.0-18.0); LYMPHOCYTES # 2.2 10^3/ul (0.8-2.9); LYMPHOCYTES % 12.3 % (15.0-51.0); MEAN CORPUSCULAR HEMOGLOBIN 28.5 pg (29.0-33.0); MEAN CORPUSCULAR HGB CONC 32.2 g/dl (32.0-37.0); MEAN CORPUSCULAR VOLUME 88.5 fl (82.0-101.0); MEAN PLATELET VOLUME 10.7 fl (7.4-10.4); MONOCYTE # 0.9 10^3/ul (0.3-0.9); MONOCYTES % 5.2 % (0.0-11.0); NEUTROPHIL # 14.1 10^3/ul (1.6-7.5); NEUTROPHILS % 79.5 % (39.0-77.0); PLATELET COUNT 228 10^3/UL (140-415); POSITIVE DIFF @See below; RED BLOOD COUNT 3.75 10^6/ul (4.70-6.10); RED CELL DISTRIBUTION WIDTH 15.6 % (11.5-14.5)
[2019-02-22 06:40] LABS: WHITE BLOOD COUNT 17.8 10^3/ul (4.8-10.8)
[2019-02-22 07:21] LABS: ALANINE AMINOTRANSFERASE 54 IU/L (13-69); ALBUMIN 2.9 g/dl (3.3-4.9); ALBUMIN/GLOBULIN RATIO 0.72; ALKALINE PHOSPHATASE 98 IU/L (42-121); ANION GAP 8 (5-13); ASPARTATE AMINO TRANSFERASE 50 IU/L (15-46); BILIRUBIN,INDIRECT 0.4 mg/dl (0-1.1); BILIRUBIN,TOTAL 0.4 mg/dl (0.2-1.3); BLOOD UREA NITROGEN 51 mg/dl (7-20); CALCIUM 8.7 mg/dl (8.4-10.2); CARBON DIOXIDE 22 mmol/L (21-31); CHLORIDE 118 mmol/L (97-110); CREATININE 1.99 mg/dl (0.61-1.24); Estimated GFR 34 mL/min (>60); GLUCOSE 153 mg/dl (70-220); SODIUM 148 mmol/L (135-144); TOTAL PROTEIN 6.9 g/dl (6.1-8.1)
[2019-02-22] MEDS: TAMSULOSIN (SR) 0.4 MG CAP PO (08:38)
[2019-02-22] MEDS: POLYETHYLENE GLYCOL 17 GM PACKET PO ×2 (09:00→22:02)
[2019-02-22] MEDS: DAKINS 0.0125%(1/40) 473 ML SOLUTION TP (11:16)
[2019-02-22] MEDS: CEFEPIME 2GM/50 ML (PMX) 50 ML IVPB (11:17)
[2019-02-22 12:04] LABS: AMMONIA 10 umol/l (9-30)
[2019-02-22] MEDS: VANCOMYCIN 750 MG (PMX) 250 ML IVPB (17:29)
[2019-02-22] MEDS: ATORVASTATIN 80 MG TAB PO (22:00)
[2019-02-22] MEDS: FAMOTIDINE 20 MG TAB PO (22:00)
[2019-02-22] MEDS: INSULIN GLARGINE [LANTus] (100 UNITS/ML) SYG SC (22:09)
[2019-02-22] MEDS: ENOXAPARIN 80 MG/0.8 ML SYG SC (22:09)
[2019-02-23] MEDS: INSULIN ASPART [NOVOLOG] 3 ML PEN SC ×4 (01:33→12:07)
[2019-02-23 06:09] LABS: ABNORMAL IP MESSAGE 1; HEMOGLOBIN 9.4 g/dl (14.0-18.0); MEAN CORPUSCULAR HEMOGLOBIN 28.6 pg (29.0-33.0); MEAN CORPUSCULAR HGB CONC 32.4 g/dl (32.0-37.0); MEAN CORPUSCULAR VOLUME 88.1 fl (82.0-101.0); MEAN PLATELET VOLUME 10.4 fl (7.4-10.4); PLATELET COUNT 282 10^3/UL (140-415); POSITIVE DIFF @See below; RED BLOOD COUNT 3.29 10^6/ul (4.70-6.10); RED CELL DISTRIBUTION WIDTH 15.3 % (11.5-14.5)
[2019-02-23 06:09] LABS: WHITE BLOOD COUNT 16.4 10^3/ul (4.8-10.8)
[2019-02-23 06:19] LABS: ADD MAN DIFF? YES
[2019-02-23 06:30] LABS: MAGNESIUM 2.3 mg/dl (1.7-2.5)
[2019-02-23 06:30] LABS: PHOSPHORUS 3.1 mg/dl (2.5-4.9)
[2019-02-23 06:35] LABS: ANION GAP 8 (5-13); BLOOD UREA NITROGEN 46 mg/dl (7-20); CARBON DIOXIDE 22 mmol/L (21-31); CHLORIDE 110 mmol/L (97-110); CREATININE 1.88 mg/dl (0.61-1.24); GLUCOSE 228 mg/dl (70-220); POTASSIUM 3.8 mmol/L (3.5-5.1); SODIUM 140 mmol/L (135-144)
[2019-02-23 06:36] LABS: CALCIUM 7.7 mg/dl (8.4-10.2); Estimated GFR 37 mL/min (>60)
[2019-02-23] MEDS: POLYETHYLENE GLYCOL 17 GM PACKET PO ×2 (08:36→21:50)
[2019-02-23] MEDS: TAMSULOSIN (SR) 0.4 MG CAP PO (08:36)
[2019-02-23 11:05] LABS: ANISOCYTOSIS 1+ (0-0); BAND NEUTROPHILS #M 0.3 10^3/ul (0.0-0.6); BAND NEUTROPHILS % (M) 2 % (0-4); BURR CELLS 1+ (0-0); EOSINOPHILS % (M) 1 % (0-7); LYMPHOCYTES #M 7.5 10^3/ul (0.8-2.9); LYMPHOCYTES % (M) 46 % (15-51); MONOCYTE #M 0.6 10^3/ul (0.3-0.9); MONOCYTES % (M) 4 % (0-11); MYELOCYTES #M 0.1 10^3/ul (0.0-0.0); MYELOCYTES % (M) 1 % (0-0); PLATELET ESTIMATE NORMAL; POIKILOCYTOSIS 1+ (0-0); POLYCHROMASIA 1+ (0-0); REACTIVE LYMPHOCYTES #M 0.9 10^3/ul (0.0-0.0); REACTIVE LYMPHOCYTES% (M) 6 % (0-0); SEG NEUT #M 6.8 10^3/ul (1.6-7.5); SEGMENTED NEUTROPHILS (M) % 41 % (39-77); SMUDGE%M 8 % (0-0)
[2019-02-23] MEDS: CEFEPIME 2GM/50 ML (PMX) 50 ML IVPB (11:57)
[2019-02-23 13:27] LABS: SODIUM,URINE RANDOM 45 mmol/L (30-90)
[2019-02-23] MEDS: DAKINS 0.0125%(1/40) 473 ML SOLUTION TP (15:09)
[2019-02-23] MEDS: Insulin NOVOLOG SS MODERATE Algorithm (SS with meals and bedtime) SC ×2 (17:21→22:30)
[2019-02-23] MEDS ORDERED: INSULIN ASPART [NOVOLOG] 3 ML PEN SC (17:30)
[2019-02-23] MEDS: ATORVASTATIN 80 MG TAB PO (21:50)
[2019-02-23] MEDS: FAMOTIDINE 20 MG TAB PO (21:50)
[2019-02-23] MEDS: HYDROCODONE/APAP (5/325) TAB PO (21:57)
[2019-02-23] MEDS: ENOXAPARIN 80 MG/0.8 ML SYG SC (22:29)
[2019-02-23] MEDS: INSULIN GLARGINE [LANTus] (100 UNITS/ML) SYG SC (22:30)
[2019-02-24 06:22] LABS: WHITE BLOOD COUNT 14.9 10^3/ul (4.8-10.8)
[2019-02-24 06:22] LABS: ABNORMAL IP MESSAGE 1; HEMATOCRIT 28.7 % (42.0-52.0); HEMOGLOBIN 9.5 g/dl (14.0-18.0); MEAN CORPUSCULAR HEMOGLOBIN 28.6 pg (29.0-33.0); MEAN CORPUSCULAR HGB CONC 33.1 g/dl (32.0-37.0); MEAN CORPUSCULAR VOLUME 86.4 fl (82.0-101.0); MEAN PLATELET VOLUME 10.2 fl (7.4-10.4); PLATELET COUNT 357 10^3/UL (140-415); POSITIVE DIFF @See below; RED BLOOD COUNT 3.32 10^6/ul (4.70-6.10)
[2019-02-24 06:27] LABS: ADD MAN DIFF? YES
[2019-02-24 07:17] LABS: ANION GAP 7 (5-13); BLOOD UREA NITROGEN 38 mg/dl (7-20); CALCIUM 8.2 mg/dl (8.4-10.2); CARBON DIOXIDE 24 mmol/L (21-31); CHLORIDE 109 mmol/L (97-110); CREATININE 1.87 mg/dl (0.61-1.24); Estimated GFR 37 mL/min (>60); GLUCOSE 213 mg/dl (70-220); POTASSIUM 3.9 mmol/L (3.5-5.1); SODIUM 140 mmol/L (135-144)
[2019-02-24] MEDS: Insulin NOVOLOG SS MODERATE Algorithm (SS with meals and bedtime) SC ×4 (08:25→21:00)
[2019-02-24 09:17] LABS: EOSINOPHILS % (M) 2 % (0-7); GIANT THROMBO% (M) 3 % (0-0); LYMPHOCYTES #M 2.9 10^3/ul (0.8-2.9); LYMPHOCYTES % (M) 20 % (15-51); MONOCYTE #M 0.7 10^3/ul (0.3-0.9); MONOCYTES % (M) 5 % (0-11); MYELOCYTES #M 0.2 10^3/ul (0.0-0.0); MYELOCYTES % (M) 2 % (0-0); PLATELET ESTIMATE NORMAL; POLYCHROMASIA 1+ (0-0); PROMYELOCYTES #M 0.1 10^3/ul (0-0); PROMYELOCYTES % (M) 1 % (0-0); REACTIVE LYMPHOCYTES #M 0.1 10^3/ul (0.0-0.0); REACTIVE LYMPHOCYTES% (M) 1 % (0-0); SEGMENTED NEUTROPHILS (M) % 69 % (39-77); SMUDGE%M 6 % (0-0)
[2019-02-24] MEDS: POLYETHYLENE GLYCOL 17 GM PACKET PO ×2 (10:04→22:35)
[2019-02-24] MEDS: SOD CHLORIDE 0.9% 1,000 ML IV (10:04)
[2019-02-24] MEDS: TAMSULOSIN (SR) 0.4 MG CAP PO (10:04)
[2019-02-24] MEDS: DAKINS 0.0125%(1/40) 473 ML SOLUTION TP (10:05)
[2019-02-24] MEDS: CEFEPIME 2GM/50 ML (PMX) 50 ML IVPB (12:08)
[2019-02-24] MEDS: ATORVASTATIN 80 MG TAB PO (22:32)
[2019-02-24] MEDS: FAMOTIDINE 20 MG TAB PO (22:33)
[2019-02-24] MEDS: ENOXAPARIN 80 MG/0.8 ML SYG SC (22:40)
[2019-02-24] MEDS: INSULIN GLARGINE [LANTus] (100 UNITS/ML) SYG SC (23:03)
[2019-02-25] MEDS: SOD CHLORIDE 0.9% 1,000 ML IV ×2 (05:02→11:04)
[2019-02-25 06:08] LABS: ADD MAN DIFF? NO
[2019-02-25 06:17] LABS: BASOPHIL # 0.1 10^3/ul (0.0-0.1); BASOPHILS % 0.4 % (0.0-2.0); EOSINOPHILS # 0.2 10^3/ul (0.0-0.5); EOSINOPHILS % 1.5 % (0.0-7.0); HEMATOCRIT 27.9 % (42.0-52.0); HEMOGLOBIN 9.1 g/dl (14.0-18.0); LYMPHOCYTES % 19.9 % (15.0-51.0); MEAN CORPUSCULAR HEMOGLOBIN 28.7 pg (29.0-33.0); MEAN CORPUSCULAR HGB CONC 32.6 g/dl (32.0-37.0); MEAN PLATELET VOLUME 10.1 fl (7.4-10.4); MONOCYTE # 0.9 10^3/ul (0.3-0.9); MONOCYTES % 6.2 % (0.0-11.0); NEUTROPHIL # 10.1 10^3/ul (1.6-7.5); NEUTROPHILS % 67.2 % (39.0-77.0); PLATELET COUNT 400 10^3/UL (140-415); RED BLOOD COUNT 3.17 10^6/ul (4.70-6.10); RED CELL DISTRIBUTION WIDTH 14.8 % (11.5-14.5)
[2019-02-25 06:40] LABS: ANION GAP 7 (5-13); BLOOD UREA NITROGEN 30 mg/dl (7-20); CALCIUM 8.3 mg/dl (8.4-10.2); CARBON DIOXIDE 23 mmol/L (21-31); CHLORIDE 113 mmol/L (97-110); CREATININE 1.87 mg/dl (0.61-1.24); Estimated GFR 37 mL/min (>60); GLUCOSE 127 mg/dl (70-220); POTASSIUM 3.8 mmol/L (3.5-5.1); SODIUM 143 mmol/L (135-144)
[2019-02-25] MEDS: Insulin NOVOLOG SS MODERATE Algorithm (SS with meals and bedtime) SC ×4 (07:41→21:00)
[2019-02-25] MEDS: TAMSULOSIN (SR) 0.4 MG CAP PO (09:15)
[2019-02-25] MEDS: POLYETHYLENE GLYCOL 17 GM PACKET PO ×2 (09:15→20:49)
[2019-02-25] MEDS: DAKINS 0.0125%(1/40) 473 ML SOLUTION TP (09:16)
[2019-02-25] MEDS: HYDROCODONE/APAP (5/325) TAB PO (09:56)
[2019-02-25] MEDS: CEFEPIME 2GM/50 ML (PMX) 50 ML IVPB (11:56)
[2019-02-25] MEDS: ATORVASTATIN 80 MG TAB PO (20:48)
[2019-02-25] MEDS: FAMOTIDINE 20 MG TAB PO (20:48)
[2019-02-25] MEDS: APIXABAN 5 MG TABLET PO (20:49)
[2019-02-25] MEDS: INSULIN GLARGINE [LANTus] (100 UNITS/ML) SYG SC (21:00)
[2019-02-26 05:47] LABS: ADD MAN DIFF? NO
[2019-02-26 05:52] LABS: WHITE BLOOD COUNT 14.4 10^3/ul (4.8-10.8)
[2019-02-26 05:52] LABS: BASOPHIL # 0.1 10^3/ul (0.0-0.1); BASOPHILS % 0.3 % (0.0-2.0); EOSINOPHILS # 0.2 10^3/ul (0.0-0.5); EOSINOPHILS % 1.3 % (0.0-7.0); HEMATOCRIT 31.2 % (42.0-52.0); LYMPHOCYTES # 2.6 10^3/ul (0.8-2.9); MEAN CORPUSCULAR HEMOGLOBIN 28.4 pg (29.0-33.0); MEAN CORPUSCULAR HGB CONC 32.1 g/dl (32.0-37.0); MEAN CORPUSCULAR VOLUME 88.6 fl (82.0-101.0); MEAN PLATELET VOLUME 9.8 fl (7.4-10.4); MONOCYTE # 0.8 10^3/ul (0.3-0.9); MONOCYTES % 5.7 % (0.0-11.0); NEUTROPHIL # 10.3 10^3/ul (1.6-7.5); NEUTROPHILS % 72.1 % (39.0-77.0); PLATELET COUNT 449 10^3/UL (140-415); RED BLOOD COUNT 3.52 10^6/ul (4.70-6.10); RED CELL DISTRIBUTION WIDTH 14.9 % (11.5-14.5)
[2019-02-26 06:16] LABS: ANION GAP 7 (5-13); BLOOD UREA NITROGEN 29 mg/dl (7-20); CALCIUM 8.6 mg/dl (8.4-10.2); CARBON DIOXIDE 26 mmol/L (21-31); CHLORIDE 112 mmol/L (97-110); CREATININE 1.86 mg/dl (0.61-1.24); Estimated GFR 37 mL/min (>60); GLUCOSE 171 mg/dl (70-220); POTASSIUM 4.3 mmol/L (3.5-5.1); SODIUM 145 mmol/L (135-144)
[2019-02-26 06:32] LABS: PHOSPHORUS 3.9 mg/dl (2.5-4.9)
[2019-02-26 06:32] LABS: MAGNESIUM 2.3 mg/dl (1.7-2.5)
[2019-02-26] MEDS: Insulin NOVOLOG SS MODERATE Algorithm (SS with meals and bedtime) SC ×2 (07:55→12:00)
[2019-02-26] MEDS: TAMSULOSIN (SR) 0.4 MG CAP PO (08:25)
[2019-02-26] MEDS: POLYETHYLENE GLYCOL 17 GM PACKET PO (08:26)
[2019-02-26] MEDS: APIXABAN 5 MG TABLET PO (08:26)
[2019-02-26] MEDS: DAKINS 0.0125%(1/40) 473 ML SOLUTION TP (08:26)
[2019-02-26] MEDS: CEFEPIME 2GM/50 ML (PMX) 50 ML IVPB ×2 (12:00→14:27)
== END 2019-02-26 15:21 | DRG 871 ==
LOC: 6WM 02-20 22:22 → E/R 11:10 → ICU 14:45
PROC: 3E0F7GC Introduction of Other Therapeutic Substance into Respiratory Tract, Via Natural or Artificial Opening (ICD-10-PCS; principal; 2019-02-18)
DX: A41.9 Sepsis, unspecified organism (principal); J18.9 Pneumonia, unspecified organism; R65.21 Severe sepsis with septic shock; G92 Toxic encephalopathy; N17.9 Acute kidney failure, unspecified; I42.9 Cardiomyopathy, unspecified; E87.2 Acidosis; E11.52 Type 2 diabetes mellitus with diabetic peripheral angiopathy with gangrene; L03.115 Cellulitis of right lower limb; I69.351 Hemiplegia and hemiparesis following cerebral infarction affecting right dominant side; I11.0 Hypertensive heart disease with heart failure; I50.9 Heart failure, unspecified; E11.8 Type 2 diabetes mellitus with unspecified complications; E11.42 Type 2 diabetes mellitus with diabetic polyneuropathy; I48.2 Chronic atrial fibrillation; E11.65 Type 2 diabetes mellitus with hyperglycemia; F03.90 Unspecified dementia, unspecified severity, without behavioral disturbance, psychotic disturbance, mood disturbance, and anxiety; I25.10 Atherosclerotic heart disease of native coronary artery without angina pectoris; F32.9 Major depressive disorder, single episode, unspecified; E78.5 Hyperlipidemia, unspecified; N40.0 Benign prostatic hyperplasia without lower urinary tract symptoms; I69.320 Aphasia following cerebral infarction; Z79.4 Long term (current) use of insulin; Z95.0 Presence of cardiac pacemaker; Z95.5 Presence of coronary angioplasty implant and graft; B95.61 Methicillin susceptible Staphylococcus aureus infection as the cause of diseases classified elsewhere
CPT/HCPCS: 36415; 70450; 71045; 73650; 73700; 80048; 80053; 80061; 80202; 81001; 81003; 82140; 82270; 82550; 82553; 82570; 82607; 82803; 82962; 83036; 83605; 83735; 83880; 84100; 84145; 84300; 84439; 84443; 84484; 85025; 85610; 85651; 85730; 86140; 87040-91; 87045; 87070; 87075; 87081; 87086; 87177; 92526; 92610; 93005; 93306; 93922; 95819; 96374; 96375; 97110; 97163; 97165; 97530; 97535; 99285-25

== ENCOUNTER 2019-02-28 18:42 | Inpatient (IN) | payer OTHER ==
[2019-02-28 19:57] LABS: ADD MAN DIFF? NO
[2019-02-28 19:58] LABS: BASOPHILS % 0.2 % (0.0-2.0); EOSINOPHILS # 0.1 10^3/ul (0.0-0.5); EOSINOPHILS % 0.7 % (0.0-7.0); HEMATOCRIT 28.8 % (42.0-52.0); HEMOGLOBIN 9.3 g/dl (14.0-18.0); LYMPHOCYTES # 2.7 10^3/ul (0.8-2.9); LYMPHOCYTES % 16.4 % (15.0-51.0); MEAN CORPUSCULAR HEMOGLOBIN 28.2 pg (29.0-33.0); MEAN CORPUSCULAR HGB CONC 32.3 g/dl (32.0-37.0); MEAN CORPUSCULAR VOLUME 87.3 fl (82.0-101.0); MEAN PLATELET VOLUME 9.9 fl (7.4-10.4); MONOCYTE # 0.8 10^3/ul (0.3-0.9); MONOCYTES % 5.2 % (0.0-11.0); NEUTROPHIL # 12.4 10^3/ul (1.6-7.5); NEUTROPHILS % 76.8 % (39.0-77.0); PLATELET COUNT 457 10^3/UL (140-415); RED CELL DISTRIBUTION WIDTH 14.1 % (11.5-14.5)
[2019-02-28 19:58] LABS: WHITE BLOOD COUNT 16.2 10^3/ul (4.8-10.8)
[2019-02-28] MEDS: SODIUM CHLORIDE 0.9% 1L BAG IV* (20:21)
[2019-02-28] MEDS: CEFEPIME 2GM/50 ML (PMX) 50 ML IVPB (20:22)
[2019-02-28] MEDS: ONDANSETRON 4 MG INJ IV ×2 (20:22→20:59)
[2019-02-28] MEDS: morphine 4 MG/ML VIAL IV ×2 (20:22→20:58)
[2019-02-28 20:26] LABS: ANION GAP 9 (5-13); BLOOD UREA NITROGEN 32 mg/dl (7-20); C-REACTIVE PROTEIN 6.8 mg/dl (0.0-0.9); CALCIUM 8.5 mg/dl (8.4-10.2); CARBON DIOXIDE 26 mmol/L (21-31); CHLORIDE 98 mmol/L (97-110); CREATININE 1.84 mg/dl (0.61-1.24); Estimated GFR 38 mL/min (>60); GLUCOSE 306 mg/dl (70-220); POTASSIUM 4.4 mmol/L (3.5-5.1); SODIUM 133 mmol/L (135-144)
[2019-02-28 20:28] LABS: INR 1.21; PARTIAL THROMBOPLASTIN TIME 31.8 Sec (23.0-35.0); PROTIME 15.4 Sec (11.9-14.9); PT RATIO 1.2
[2019-02-28] MEDS: VANCOMYCIN 1 GM (PMX) 250 ML IVPB (20:58)
[2019-02-28 21:12] LABS: ERYTHROCYTE SEDIMENTATION RATE > 130 mm/Hr (0-20)
[2019-02-28] MEDS ORDERED: ACETAMINOPHEN 325 MG TAB PO ×3 (21:30→23:30)
[2019-02-28] MEDS ORDERED: ONDANSETRON 4 MG INJ IV ×2 (21:30→23:30)
[2019-02-28 22:10] LABS: LACTIC ACID 1.5 mmol/L (0.5-2.0)
[2019-02-28] MEDS ORDERED: POLYETHYLENE GLYCOL 17 GM PACKET PO (23:00)
[2019-02-28] MEDS ORDERED: BISACODYL (EC) 5 MG TAB PO ×2 (23:00→23:30)
[2019-02-28] MEDS ORDERED: morphine 2 MG INJ IV (23:30)
[2019-02-28] MEDS ORDERED: HYDROCODONE/APAP (5/325) TAB PO (23:30)
[2019-02-28] MEDS ORDERED: DOCUSATE SODIUM 100 MG CAP PO (23:30)
[2019-02-28] MEDS ORDERED: NACL 0.9% 3 ML SYG IV (23:30)
[2019-02-28] MEDS ORDERED: VANCOMYCIN IV PER PHARMACY XX (23:30)
[2019-03-01] MEDS ORDERED: ENOXAPARIN 100 MG/ML SYG SC
[2019-03-01 00:25] LABS: LACTIC ACID 1.3 mmol/L (0.5-2.0)
[2019-03-01] MEDS ORDERED: hydrALAzine 20 MG INJ IV (00:30)
[2019-03-01] MEDS ORDERED: ENOXAPARIN 80 MG/0.8 ML SYG SC (01:00)
[2019-03-01] MEDS: AMLODIPINE 5 MG TAB PO ×3 (01:53→20:33)
[2019-03-01] MEDS: TAMSULOSIN (SR) 0.4 MG CAP PO ×2 (01:53→20:33)
[2019-03-01] MEDS: ATORVASTATIN 80 MG TAB PO ×2 (01:53→20:33)
[2019-03-01] MEDS: ACCU-CHEK XX (02:00)
[2019-03-01] MEDS ORDERED: GLUCOSE GEL 15 GRAM TUBE PO ×2 (02:00)
[2019-03-01] MEDS ORDERED: GLUCAGON 1 MG INJ IM (02:00)
[2019-03-01] MEDS ORDERED: GLUCOSE GEL 15 GRAM TUBE BUCCAL (02:00)
[2019-03-01] MEDS ORDERED: DEXTROSE 50% 50 ML SYRINGE IV ×2 (02:00)
[2019-03-01] MEDS: VANCOMYCIN 500 MG (PMX) 100 ML IVPB (02:04)
[2019-03-01] MEDS: INSULIN ASPART [NOVOLOG] 3 ML PEN SC ×4 (08:30→20:38)
[2019-03-01] MEDS: ENOXAPARIN 80 MG/0.8 ML SYG SC (08:30)
[2019-03-01] MEDS: CEFEPIME 1GM/50 ML (PMX) 50 ML IVPB ×2 (08:31→20:33)
[2019-03-01] MEDS: INSULIN GLARGINE [LANTus] (100 UNITS/ML) SYG SC (08:31)
[2019-03-01] MEDS: FERROUS SULFATE (EC) 325 MG TAB PO (08:33)
[2019-03-01] MEDS: FUROSEMIDE 20 MG TAB PO (08:33)
[2019-03-01] MEDS: BISACODYL (EC) 5 MG TAB PO (08:33)
[2019-03-01] MEDS: BENAZEPRIL 5 MG TAB PO (08:33)
[2019-03-01] MEDS: EPOETIN ALFA-EPBX (NON-ESRD 10,000 UNIT/ML VIAL SC (17:37)
[2019-03-01 18:26] LABS: CREATINE KINASE 73 IU/L (23-200)
[2019-03-01 18:40] LABS: CK INDEX 3.9
[2019-03-01 18:41] LABS: CK-MB 2.88 ng/ml (0.0-2.4)
[2019-03-02 01:16] LABS: CREATINE KINASE 71 IU/L (23-200)
[2019-03-02 01:28] LABS: CK INDEX 8.3; TROPONIN-I 0.049 ng/ml (0.000-0.120)
[2019-03-02 01:30] LABS: CK-MB 5.92 ng/ml (0.0-2.4)
[2019-03-02] MEDS: ACCU-CHEK XX (02:00)
[2019-03-02] MEDS: VANCOMYCIN 1 GM 250 ML IVPB (02:20)
[2019-03-02 05:58] LABS: ADD MAN DIFF? NO
[2019-03-02 06:21] LABS: WHITE BLOOD COUNT 16.2 10^3/ul (4.8-10.8)
[2019-03-02 06:21] LABS: BASOPHIL # 0.1 10^3/ul (0.0-0.1); BASOPHILS % 0.3 % (0.0-2.0); EOSINOPHILS # 0.1 10^3/ul (0.0-0.5); EOSINOPHILS % 0.8 % (0.0-7.0); HEMATOCRIT 27.2 % (42.0-52.0); HEMOGLOBIN 8.9 g/dl (14.0-18.0); LYMPHOCYTES # 2.4 10^3/ul (0.8-2.9); MEAN CORPUSCULAR HEMOGLOBIN 28.5 pg (29.0-33.0); MEAN CORPUSCULAR HGB CONC 32.7 g/dl (32.0-37.0); MEAN CORPUSCULAR VOLUME 87.2 fl (82.0-101.0); MEAN PLATELET VOLUME 10.2 fl (7.4-10.4); MONOCYTE # 1.2 10^3/ul (0.3-0.9); MONOCYTES % 7.3 % (0.0-11.0); NEUTROPHIL # 12.3 10^3/ul (1.6-7.5); NEUTROPHILS % 75.9 % (39.0-77.0); PLATELET COUNT 408 10^3/UL (140-415); RED BLOOD COUNT 3.12 10^6/ul (4.70-6.10); RED CELL DISTRIBUTION WIDTH 14.4 % (11.5-14.5)
[2019-03-02 06:40] LABS: IRON 21 ug/dl (35-150)
[2019-03-02 06:42] LABS: CREATINE KINASE 68 IU/L (23-200)
[2019-03-02 06:45] LABS: PHOSPHORUS 4.1 mg/dl (2.5-4.9)
[2019-03-02 06:45] LABS: MAGNESIUM 2.1 mg/dl (1.7-2.5)
[2019-03-02 06:50] LABS: % IRON SATURATION 11 % SAT (22-52); TOTAL IRON BINDING CAPACITY 193 ug/dl (241-421)
[2019-03-02 06:51] LABS: CK INDEX 7.1; TROPONIN-I 0.047 ng/ml (0.000-0.120)
[2019-03-02 07:06] LABS: CK-MB 4.85 ng/ml (0.0-2.4)
[2019-03-02] MEDS: INSULIN GLARGINE [LANTus] (100 UNITS/ML) SYG SC (08:42)
[2019-03-02] MEDS: ENOXAPARIN 80 MG/0.8 ML SYG SC (08:44)
[2019-03-02] MEDS: INSULIN ASPART [NOVOLOG] 3 ML PEN SC ×2 (08:44→12:35)
[2019-03-02] MEDS: FERROUS SULFATE (EC) 325 MG TAB PO (08:46)
[2019-03-02] MEDS: BENAZEPRIL 5 MG TAB PO (08:46)
[2019-03-02] MEDS: BISACODYL (EC) 5 MG TAB PO (08:46)
[2019-03-02] MEDS: FUROSEMIDE 20 MG TAB PO (08:47)
[2019-03-02] MEDS: AMLODIPINE 5 MG TAB PO (08:47)
[2019-03-02] MEDS: CEFEPIME 1GM/50 ML (PMX) 50 ML IVPB (08:48)
[2019-03-02 10:30] LABS: ANION GAP 8 (5-13); BLOOD UREA NITROGEN 34 mg/dl (7-20); CALCIUM 8.8 mg/dl (8.4-10.2); CARBON DIOXIDE 25 mmol/L (21-31); CHLORIDE 102 mmol/L (97-110); CREATININE 2.04 mg/dl (0.61-1.24); Estimated GFR 33 mL/min (>60); GLUCOSE 234 mg/dl (70-220); MAGNESIUM 2.1 mg/dl (1.7-2.5); PHOSPHORUS 4.3 mg/dl (2.5-4.9); POTASSIUM 4.2 mmol/L (3.5-5.1); SODIUM 135 mmol/L (135-144)
[2019-03-02] MEDS: POVIDONE IODINE 10% 28.4 GM OINT TOP (10:30)
[2019-03-02] MEDS ORDERED: DAKINS 0.0125%(1/40) 473 ML SOLUTION TP (21:00)
== END 2019-03-02 17:46 | disposition left against medical advice (07) | DRG 300 ==
LOC: E/R 18:42 → MS3 21:09
DX: E11.52 Type 2 diabetes mellitus with diabetic peripheral angiopathy with gangrene (principal); I96 Gangrene, not elsewhere classified; I13.0 Hypertensive heart and chronic kidney disease with heart failure and stage 1 through stage 4 chronic kidney disease, or unspecified chronic kidney disease; I50.22 Chronic systolic (congestive) heart failure; I69.359 Hemiplegia and hemiparesis following cerebral infarction affecting unspecified side; E87.1 Hypo-osmolality and hyponatremia; L89.519 Pressure ulcer of right ankle, unspecified stage; E11.22 Type 2 diabetes mellitus with diabetic chronic kidney disease; N18.9 Chronic kidney disease, unspecified; I48.0 Paroxysmal atrial fibrillation; E11.42 Type 2 diabetes mellitus with diabetic polyneuropathy
CPT/HCPCS: 36415; 71045; 73610-RT; 73630; 80048; 82550; 82553; 82728; 82962; 83540; 83605; 83735; 84100; 84484; 85025; 85610; 85651; 85730; 86140; 86320; 86325; 87040-91; 87081; 92526; 92610; 93005; 93971; 96374; 96375; 99285-25